=== PATIENT | female | born 1950 | race Caucasian/White ===

== ENCOUNTER 2018-10-02 09:52 | Outpatient (CLI) | payer MEDICARE ==
--- NOTE | 2018-10-02 13:47 | MMO ---
BILATERAL SCREENING MAMMOGRAM: Date: 10/02/18 COMPARISON: 02/21/16. HISTORY: Screening mammography. FINDINGS: This patient's mammogram was interpreted with the assistance of computer-aided detection. There are bilateral breast implants present. There are scattered fibroglandular densities noted. Since the prior examination, there appears to have been rupture of the patient's right breast implant , with new density superior to the breast implant on the MLO view. On the implant displaced right CC view medially, there is a focal asymmetry, for which further assess ment is advised. There are benign calcifications present bilaterally. IMPRESSION: BIRADS 0: Incomplete: Need Additional Imaging Evaluation and/or Prior Mammograms for Comparison Recommend diagnostic mammography to further evaluate the small focal asymmetry within the medial aspe ct of the right breast on CC implant displaced view. Evidence of interval rupture of right breast implant. The facility will notify patient of need for additional imaging services. POS: [facility]
== END 2018-10-02 09:53 | disposition home or self-care (01) ==
LOC: SCSMAMMO 09:52
PROVIDERS: ATTEND Nurse Practitioner Family
DX: Z12.31 Encounter for screening mammogram for malignant neoplasm of breast (principal)
CPT/HCPCS: 77067

== ENCOUNTER 2018-10-10 09:31 | Outpatient (CLI) | payer MEDICARE | END 2018-10-10 09:32 | disposition home or self-care (01) | LOC: BICMAMMO 09:31 | PROVIDERS: ATTEND Nurse Practitioner Family | DX: Z12.31 Encounter for screening mammogram for malignant neoplasm of breast (principal); Z80.3 Family history of malignant neoplasm of breast | CPT/HCPCS: 77065; G0279 ==

== ENCOUNTER 2022-01-01 21:36 | Observation (INO) | payer MEDICARE, OTHER ==
[2022-01-01] MEDS ORDERED: Xylocaine 1% w/ Epi 1:100K 10 ML VIAL ONE (22:20)
[2022-01-01] MEDS ORDERED: Ampicillin/Sulbactam 3 GM in Sodium Chloride 0.9% 100 ML IVPB SCH (23:45)
[2022-01-02] MEDS ORDERED: Boostrix 0.5 ML (Tdap) VIAL ONE (00:26)
[2022-01-02] MEDS ORDERED: Bupivacaine 0.75% 10 ML VIAL ONE (00:32)
[2022-01-02] MEDS ORDERED: Neomycin-Polymyxin 1 ML AMP ONE (00:32)
[2022-01-02] MEDS ORDERED: Bupivacaine 0.25% 10 ML VIAL ONE ×2 (00:32→03:04)
[2022-01-02] MEDS ORDERED: Bacitracin Zinc Ointment 30 gm TUBE ONE (00:32)
[2022-01-02] MEDS ORDERED: Fentanyl 100 MCG/2 ML VIAL ONE (01:12)
[2022-01-02 01:23] LABS: SARS-CoV-2 NAA Rapid Test Not Detected (NotDetected)
[2022-01-02] MEDS ORDERED: PROPOFOL 200 MG/20 ML VIAL ONE (01:39)
[2022-01-02] MEDS ORDERED: Dexamethasone 20 MG/5 ML VIAL ONE (01:39)
[2022-01-02] MEDS ORDERED: Lidocaine 1% PF 5 ML VIAL ONE (01:39)
[2022-01-02] MEDS ORDERED: ePHEDrine 50 MG/ML VIAL ONE (01:39)
[2022-01-02] MEDS ORDERED: Succinylcholine 200 MG/10 ml SYRINGE FS ONE (01:39)
[2022-01-02] MEDS ORDERED: PHENYLEPHRINE-NS 100 MCG/ML 10 ML SYRINGE ONE (01:39)
[2022-01-02] MEDS ORDERED: Ondansetron PF 4 MG/2 ML Vial ONE (01:39)
[2022-01-02] MEDS ORDERED: Phenylephrine 10 MG/ML VIAL ONE (02:16)
[2022-01-02] MEDS ORDERED: SUGAMMADEX SODIUM 200 MG/2 ML VIAL ONE (03:09)
[2022-01-02] MEDS ORDERED: Promethazine HCl 25 MG/ML VIAL IM PRN ×2 (03:36→04:02)
[2022-01-02] MEDS ORDERED: Promethazine HCl 25 MG/ML VIAL IVPB PRN (03:36)
[2022-01-02] MEDS ORDERED: Ondansetron HCl/PF 4 MG/2 ML Vial IVP PRN (03:36)
[2022-01-02] MEDS ORDERED: traMADol HCl 50 MG TAB PO PRN (04:02)
[2022-01-02] MEDS ORDERED: Morphine 4 MG/ML VIAL SLOW IVP PRN (04:02)
[2022-01-02] MEDS ORDERED: Ondansetron PF 4 MG/2 ML Vial SLOW IVP PRN (04:02)
[2022-01-02] MEDS ORDERED: HYDROcodone/Acetaminophen 5/325 mg Tablet PO PRN (04:02)
[2022-01-02] MEDS ORDERED: Bisacodyl 10 MG SUPP PR PRN (04:02)
[2022-01-02] MEDS ORDERED: Acetaminophen 325 MG TAB PO PRN (04:02)
[2022-01-02] MEDS ORDERED: Communication Order-Pharmacy FS PRN (04:15)
[2022-01-02] MEDS ORDERED: TETANUS AND DIPHTHERIA TOX/PF 0.5 ML DISP.SYRIN IM SCH (04:15)
[2022-01-02 05:30] VITALS: BMI 32.7
[2022-01-02] MEDS: Gentamicin 80 MG/2 ML VIAL IM SCH ×2 (06:18→16:35)
[2022-01-02] MEDS ORDERED: Aspirin 81 mg Enteric Coated Tablet PO SCH (09:00)
[2022-01-02] MEDS ORDERED: Vancomycin HCl 750 MG in Sodium Chloride 0.9% 250 ML 250 ML IVPB SCH (09:00)
[2022-01-02] MEDS ORDERED: Vancomycin 1 GM in Premix Bag 1 BAG IVPB SCH (09:00)
[2022-01-02 12:21] VITALS: BP 144/77; TEMP 98.1
[2022-01-02] MEDS ORDERED: GENTAMICIN SULFATE IJ SCH (16:00)
[2022-01-02] MEDS ORDERED: ADMIXTURE FEE IJ SCH (16:00)
== END 2022-01-02 17:48 | disposition home or self-care (01) ==
LOC: ERS 21:36 → SDC/OP 01-02 01:29 → 2NO 01-02 04:02
PROVIDERS: ADMIT Orthopaedic Surgery Hand Surgery; ATTEND Orthopaedic Surgery Hand Surgery
PROC: 0HQGXZZ Repair Left Hand Skin, External Approach (ICD-10-PCS; principal; 2022-01-02)
PROC: 0PSV04Z Reposition Left Finger Phalanx with Internal Fixation Device, Open Approach (ICD-10-PCS; 2022-01-02)
PROC: 01Q40ZZ Repair Ulnar Nerve, Open Approach (ICD-10-PCS; 2022-01-02)
PROC: 0HQQXZZ Repair Finger Nail, External Approach (ICD-10-PCS; 2022-01-02)
DX: S62.637B Displaced fracture of distal phalanx of left little finger, initial encounter for open fracture (principal); S64.497A Injury of digital nerve of left little finger, initial encounter; S61.255A Open bite of left ring finger without damage to nail, initial encounter; S61.253A Open bite of left middle finger without damage to nail, initial encounter; I25.10 Atherosclerotic heart disease of native coronary artery without angina pectoris; I10 Essential (primary) hypertension; Z79.899 Other long term (current) drug therapy; Z88.5 Allergy status to narcotic agent; Z95.1 Presence of aortocoronary bypass graft; Z20.822 Contact with and (suspected) exposure to COVID-19; W54.0XXA Bitten by dog, initial encounter; Y92.009 Unspecified place in unspecified non-institutional (private) residence as the place of occurrence of the external cause
CPT/HCPCS: 11012; 11760; 12002; 26765; 64702; 73130 ×2; 73140; 76000; 90715; 96372; 96374; 96375; C1713; G0378; U0002; 90471; J0295; J1100; J1580; J2370; J2405; J2704; J3010; J3370; J3490; J7050; S0020

== ENCOUNTER 2025-04-30 12:07 | Outpatient (CLI) | payer OTHER | END 2025-04-30 12:08 | disposition home or self-care (01) | LOC: BICMAMMO 12:07 | PROVIDERS: ATTEND Family Medicine | DX: Z13.820 Encounter for screening for osteoporosis (principal); M85.851 Other specified disorders of bone density and structure, right thigh; M85.852 Other specified disorders of bone density and structure, left thigh; Z78.0 Asymptomatic menopausal state | CPT/HCPCS: 77080 ==